=== PATIENT | male | born 1955 | race Caucasian/White ===

== ENCOUNTER 2017-02-11 17:44 | Observation (INO) | payer OTHER ==
[~2017-02-11] VITALS: Ht 175.3 cm; Wt 96.2 kg
[2017-02-11 18:32] VITALS: BP 193/120
[2017-02-11] MEDS ORDERED: KETOROLAC 60 MG/2 ML VIAL IM ONE (21:30)
[2017-02-11 22:14] LABS: BASOPHILS # (AUTO) 0.3 K/uL (0.00-0.22); BASOPHILS % (AUTO) 3.6 % (0.0-2.0); EOSINOPHILS # (AUTO) 0.5 K/uL (0-0.4); EOSINOPHILS % (AUTO) 6.6 % (0.0-4.0); HEMATOCRIT 46.7 % (36-52); HEMOGLOBIN 15.3 g/dL (12.0-18.0); LYMPHOCYTES # (AUTO) 1.9 K/uL (2.0-11.5); LYMPHOCYTES % (AUTO) 23.1 % (20.5-51.1); MEAN CORPUSCULAR HEMOGLOBIN 29 pg (27-31); MEAN CORPUSCULAR HGB CONC 33 g/dL (33-37); MEAN CORPUSCULAR VOLUME 88 fL (80-94); MONOCYTES # (AUTO) 0.6 K/uL (0.8-1.0); MONOCYTES % (AUTO) 7.6 % (1.7-9.3); NEUTROPHILS # (AUTO) 4.9 K/uL (1.8-7.7); NEUTROPHILS % (AUTO) 59.1 % (42.2-75.2); PLATELET COUNT (AUTO) 300 K/uL (140-450); RED BLOOD CELL COUNT(AUTO) 5.32 MIL/uL (4.20-6.10); RED CELL DISTRIBUTION WIDTH 12.1 % (11.6-13.7); WHITE BLOOD COUNT (AUTO) 8.2 K/uL (4.8-10.8)
[2017-02-11 22:16] LABS: APPEARANCE,URINE CLEAR (CLEAR); BILIRUBIN,URINE NEGATIVE (NEGATIVE); BLOOD, URINE TRACE-L (NEGATIVE); COLOR,URINE YELLOW (YELLOW); LEUKOCYTE ESTERASE ,URINE NEGATIVE (NEGATIVE); NITRITE, URINE NEGATIVE (NEGATIVE); UGLUCOSE NEGATIVE (NEGATIVE)
[2017-02-11 22:26] LABS: ANION GAP 9.7 (8-16); CARBON DIOXIDE 30.3 mmol/L (21-32); CREATININE 1.3 mg/dL (0.7-1.3)
[2017-02-11] MEDS ORDERED: ENALAPRILAT 2.5 MG/2 ML VIAL IVP ONE (22:30)
[2017-02-11 22:32] LABS: ALBUMIN 4.1 g/dL (3.4-5.0); TOTAL BILIRUBIN 0.4 mg/dL (0.0-1.0)
[2017-02-11 22:34] LABS: RBC,URINE 0-5 (RARE) /HPF (0-5)
[2017-02-11 22:35] LABS: WBC,URINE 0-5 (RARE) /HPF (0-5)
[2017-02-12] MEDS ORDERED: hydrALAZINE 20 MG/ML VIAL IVP ONE (00:20)
[2017-02-12] MEDS ORDERED: NACL 0.9% 1,000 ML IV SCH (00:23)
[2017-02-12] MEDS ORDERED: ONDANSETRON 4 MG/2 ML VIAL IM/IVP PRN (00:25)
[2017-02-12] MEDS ORDERED: MORPHINE SULFATE 2 MG/ML SYR IVP PRN (00:25)
[2017-02-12] MEDS ORDERED: ACETAMINOPHEN 325 MG TAB PO PRN (00:25)
[2017-02-12] MEDS ORDERED: HYDROcodone/APAP 7.5/325 MG 1 TAB PO PRN (00:25)
[2017-02-12] MEDS ORDERED: DOCUSATE SODIUM 100 MG GELCAP PO PRN (00:25)
[2017-02-12 00:44] LABS: PROTHROMBIN TIME 10.9 secs (10.8-13.4)
[2017-02-12 00:55] LABS: FREE T4 (FREE THYROXINE) 0.89 ng/dL (0.76-1.46); MAGNESIUM 2.1 mg/dL (1.8-2.4); PHOSPHORUS 4.1 mg/dL (2.5-4.9); THYROID STIMULATING HORMONE 3.18 uIU/mL (0.34-3.74)
[2017-02-12 03:28] VITALS: BP 144/83
[2017-02-12 06:33] LABS: BASOPHILS # (AUTO) 0.1 K/uL (0.00-0.22); BASOPHILS % (AUTO) 1.5 % (0.0-2.0); EOSINOPHILS # (AUTO) 0.6 K/uL (0-0.4); EOSINOPHILS % (AUTO) 8.8 % (0.0-4.0); HEMATOCRIT 43.2 % (36-52); HEMOGLOBIN 14.5 g/dL (12.0-18.0); LYMPHOCYTES # (AUTO) 1.5 K/uL (2.0-11.5); MEAN CORPUSCULAR HEMOGLOBIN 29 pg (27-31); MEAN CORPUSCULAR HGB CONC 34 g/dL (33-37); MEAN CORPUSCULAR VOLUME 87 fL (80-94); MONOCYTES # (AUTO) 0.6 K/uL (0.8-1.0); MONOCYTES % (AUTO) 8.7 % (1.7-9.3); NEUTROPHILS # (AUTO) 4.2 K/uL (1.8-7.7); PLATELET COUNT (AUTO) 251 K/uL (140-450); RED BLOOD CELL COUNT(AUTO) 4.97 MIL/uL (4.20-6.10); RED CELL DISTRIBUTION WIDTH 12.2 % (11.6-13.7); WHITE BLOOD COUNT (AUTO) 6.9 K/uL (4.8-10.8)
[2017-02-12 07:37] LABS: ANION GAP 14.1 (8-16); CARBON DIOXIDE 24.5 mmol/L (21-32); CREATININE 1.2 mg/dL (0.7-1.3); POTASSIUM 3.6 mmol/L (3.5-5.1)
[2017-02-12 08:00] VITALS: BP 163/108
[2017-02-12] MEDS ORDERED: LISINOPRIL 10 MG TAB PO SCH ×2 (09:39→13:14)
[2017-02-12] MEDS ORDERED: LISI10TA11 PO (10:33)
[2017-02-12 12:00] VITALS: BP 169/94
[2017-02-12] MEDS ORDERED: LISINOPRIL 10 MG TAB ONE (13:32)
[2017-02-12 16:00] VITALS: BP 143/87
[2017-02-12] MEDS ORDERED: LISI-420 PO (16:26)
[2017-02-12] MEDS ORDERED: ATOR40TA PO (16:28)
[2017-02-13 08:20] LABS: T4 (THYROXINE) 6.3 ug/dL (4.5-12.0)
[2017-02-13] MEDS ORDERED: LISINOPRIL 10 MG TAB PO SCH (09:00)
== END 2017-02-12 18:50 | disposition home or self-care (01) ==
LOC: MED 17:44 → MTU 02-12 00:26
PROVIDERS: ADMIT Family Medicine Sports Medicine; ATTEND Family Medicine Sports Medicine
DX: I16.0 Hypertensive urgency (principal); E66.9 Obesity, unspecified; E78.5 Hyperlipidemia, unspecified; Z68.31 Body mass index [BMI] 31.0-31.9, adult
CPT/HCPCS: 36415; 71010; 80048; 80053; 81001; 83036; 83735; 83880; 84100; 84436; 84439; 84443; 84479; 85025; 85610; 85730; 87081; 93971; 96361; 96372; 96374; 96375; 99285; G0378; J0360; J1885; J3490; J7030; Q0092

== ENCOUNTER 2017-06-15 11:01 | Emergency (ER) | payer BC, OTHER ==
[~2017-06-15] VITALS: Ht 175.3 cm; Wt 96.6 kg
[~2017-06-15 11:01] MED LIST: ATOR40TA PO; LISI-420 PO
[2017-06-15 11:13] VITALS: BP 151/91
--- NOTE | 2017-06-15 11:25 | NUR ---
PATIENT PRESENTS TO ED WITH DEHISENCE TO LEFT FLANK S/P SUTURE REMOVAL 06/06/17; INCISION OPENED THIS AM HX: HTN, HYPERLIPIDEMIA; DENIES N/V/D; SKIN IS PINK/WARM/DRY; AAOX4 WITH EVEN AND STEADY GAIT; LUNGS CLEAR BL; HR EVEN AND REGULAR; PT DENIES ANY FEVER, CP, SOB, OR COUGH AT THIS TIME; PATIENT STATES PAIN OF 8/10 AT THIS TIME; VSS; PATIENT POSITIONED FOR COMFORT; HOB ELEVATED; BEDRAILS UP X2; BED DOWN. ER MD MADE AWARE OF PT STATUS.
[2017-06-15 11:57] VITALS: BP 132/90
== END 2017-06-15 11:57 | disposition home or self-care (01) ==
LOC: MED 11:01
DX: T81.30XA Disruption of wound, unspecified, initial encounter (principal); Z79.899 Other long term (current) drug therapy
CPT/HCPCS: 99283